=== PATIENT | female | born 1965 | race Caucasian/White ===

== ENCOUNTER 2016-09-19 08:22 | Day surgery (SDC) | payer MEDICAID ==
[~2016-09-19 08:22] MED LIST: Dexamethasone 4 MG/ML SDV ONE; Neostigmine Methylsulfate 1 MG/ML 5 ML Syringe ONE; Ondansetron 4 MG/2 ML SDV ONE; Propofol 200 MG/20 ML SDV ONE; Rocuronium 50 MG/5 ML Vial ONE; Succinylcholine/Normal Saline 200 MG/10 ML Syringe ONE; fentaNYL 250 MCG/5 ML SDV ONE
[2016-09-19] MEDS ORDERED: HYDROmorphone/Normal Saline 15 MG/30 ML PCA IV PRN (09:14)
[2016-09-19] MEDS ORDERED: Naloxone 0.4 MG/ML SDV IVPUSH PRN (09:14)
[2016-09-19] MEDS ORDERED: Dextrose 5%-Lactated Ringers 1,000 ML IV SCH ×2 (09:15→14:15)
[2016-09-19] MEDS ORDERED: Bupivacaine 0.5%/EPINEPHrine 1:200,000 50 ML MDV ONE (09:52)
[2016-09-19] MEDS ORDERED: ceFAZolin 2 GM in Premix Bag 1 BAG IV ONE (10:00)
[2016-09-19] MEDS ORDERED: Albuterol/Ipratropium 3.0-0.5 MG/3 ML Neb Soln NEB ONE (10:30)
[2016-09-19] MEDS: cefOXitin 2 GM in Sodium Chloride 0.9% 50 ML IV ONE ×2 (11:22→22:57)
[2016-09-19] MEDS ORDERED: Meropenem 500 MG in Sodium Chloride 0.9% 50 ML IV ONE (12:40)
[2016-09-19] MEDS ORDERED: Insulin Aspart 100 Units/ML 3 ML Pen SUBCUT ONE (12:45)
[2016-09-19] MEDS ORDERED: Ondansetron 4 MG/2 ML SDV IVPUSH ONE (12:59)
[2016-09-19] MEDS ORDERED: Naloxone 0.4 MG/ML SDV IV PRN (14:03)
[2016-09-19] MEDS ORDERED: Glucose Gel 15 GM in 37.5 GM Tube PO PRN (14:07)
[2016-09-19] MEDS ORDERED: 50% Dextrose in Water 50 ML Syringe IVPUSH PRN (14:07)
[2016-09-19] MEDS ORDERED: Glucagon,Human Recombinant 1 MG Vial IM PRN (14:07)
[2016-09-19] MEDS ORDERED: Insulin Aspart 100 Units/ML 3 ML Pen SUBCUT PRN (14:07)
[2016-09-19] MEDS ORDERED: Ondansetron 4 MG/2 ML SDV IVPUSH PRN (15:00)
[2016-09-19] MEDS ORDERED: Pantoprazole 40 MG Vial IVPUSH SCH (16:00)
[2016-09-19] MEDS: metFORMIN 500 MG Tab PO SCH (16:51)
[2016-09-19] MEDS: Meropenem 500 MG in Sodium Chloride 0.9% 50 ML IV SCH ×2 (18:48→23:47)
[2016-09-19] MEDS: Acetaminophen/HYDROcodone 325-5 MG Tab PO PRN (22:58)
[2016-09-20] MEDS: Acetaminophen/HYDROcodone 325-5 MG Tab PO PRN ×3 (01:57→08:34)
[2016-09-20] MEDS: Meropenem 500 MG in Sodium Chloride 0.9% 50 ML IV SCH (05:30)
[2016-09-20] MEDS ORDERED: Amoxicillin/Clavulanate K 875-125 MG Tab PO SCH (08:00)
[2016-09-20 08:05] VITALS: BP 131/65
[2016-09-20] MEDS: metFORMIN 500 MG Tab PO SCH (08:15)
[2016-09-20] MEDS ORDERED: FARXIGA 10 MG PO SCH (09:00)
[2016-09-20] MEDS ORDERED: JANUVIA 100 MG PO SCH (09:00)
--- NOTE | 2016-09-20 09:37 | DISCH ---
ADMISSION DIAGNOSES: Chronic cholecystitis, diabetes mellitus, hypertension, and hyperlipidemia. DISCHARGE DIAGNOSES: A diagnostic laparoscopy with cholecystectomy, drainage of pericholecystic abscess and repair of area of deserosalization hepatic flexure of the colon for severe sub acute/chronic cholecystitis, adhesions to hepatic flexure of the colon, and pericholecystic abscess. Date of surgery 09/19/2016. HISTORY: Joanne Guerra is a 51-year-old female with history of chronic cholecystitis. After preoperative evaluation and discussion of possible risks and possible complications, she wished to proceed with surgical procedure. HOSPITAL COURSE: Joanne had her surgery on 09/19/2016. On postop day #1, her pain was well managed. She tolerated a diet well. Her activity was good. Vital signs stable and she was able to be discharged to home. PHYSICAL EXAMINATION: GENERAL: Joanne Guerra is a 51-year-old female. VITAL SIGNS: Height is 5 feet 2 inches. Weight is 180 pounds. TPR is 98.6, 76, and 18, and blood pressure 131/65. HEENT: Negative. NECK: Supple. HEART: Regular rate and rhythm. LUNGS: Clear. ABDOMEN: Dressings dry and intact. CELE drain intact. Abdominal binder without peripheral edema. DISPOSITION: Discharged to home. CONDITION: Stable and improving. FOLLOWUP APPOINTMENT: With Naheed Schmitz PA-C, on 09/28/2016 at 11:00 a.m. HOME MEDICATION: Augmentin 875 mg one tablet oral every 12 hours #10, [place] 5/325 mg one tablet every 3 hours p.r.n. pain #50, milk of magnesia 30 mL to take 1 daily p.r.n. constipation and 2 were sent home with patient. Resume home medications vitamin C 500 mg oral daily, aspirin 81 mg oral daily, Valisone 0.1% ointment one applicator topical twice daily for vaginal rash, Symbicort 160/4.5 micro mg 2 puffs daily as needed for shortness of breath, Farxiga 10 mg oral daily, Lidex 0.05% ointment one applicator transderm twice daily p.r.n. bumps on feet, Flonase 1 spray inhalation daily, metoprolol succinate 25 mg oral daily, Singulair 10 mg oral at bedtime, multivitamin one tablet oral daily, and norethindrone ethinyl 777-28 tablet one oral daily, Januvia 100 mg oral daily, testosterone 1 injection IM every 30 days, Lipitor 20 mg oral daily, and metformin 1000 mg oral twice daily. DISCHARGE DIET: Usual diet as tolerated. Drink 8 to 10 glasses of water a day. ACTIVITY: After discharge, no lifting greater than 10 pounds for 2 weeks. Other activity, walk 8 times daily inside your home. Driving, do not drive on pain medication. Shower and bathing, may shower. Notify provider of fever, increased pain, nausea, or vomiting. Wound incision care keep site clean and dry. Change dressing daily. Wear abdominal binder for 2 weeks then as tolerated. Use incentive spirometer 10 times every hour while awake for 2 weeks.
[2016-09-20] MEDS ORDERED: Magnesium Hydroxide 400 MG/5 ML Susp 30 ML Cup PO ONE (10:58)
--- NOTE | 2016-09-21 15:41 | OR ---
DATE OF PROCEDURE: 09/19/2016 PREOPER`ATIVE DIAGNOSIS: Probable small degree of subacute and chronic cholecystitis. POSTOPERATIVE DIAGNOSES: 1. Severe subacute and chronic cholecystitis with generalized inflammatory response in the right upper quadrant. 2. Hepatic flexure serosa fused with the gallbladder. 3. Pericholecystic abscess. OPERATIVE PROCEDURE: Diagnostic laparoscopy with: 1. Cholecystectomy (15894). 2. Drainage of pericholecystic abscess (09212). 3. Repair of area of the deserosalization of hepatic flexure of colon (15492). ANESTHESIA: General. RECOVERY COLLECTOR: Naheed Schmitz PA-C. INDICATION FOR PROCEDURE: This is a 51-year-old female presenting for elective cholecystectomy. Workup included, imaging showing a thickened gallbladder wall along with some stones. By history, the patient likely had a severe ongoing to a variable extent for months or years. The plan is to proceed with a diagnostic laparoscopy, laparotomy if necessary with cholecystectomy and procedures as indicated. Potential risks including bleeding, infection, injury to the viscera in the area of possible migration of stones in the common bile duct requiring subsequent removal, subdermal possibly cardiopulmonary, septic, or hemorrhagic complications leading to were discussed, and the patient wishes to proceed. DETAILS OF THE PROCEDURE: The patient was taken to the room and placed in supine position. After general endotracheal anesthesia was induced, the abdomen was prepped and draped. A transverse epigastric incision was made and the peritoneal cavity was entered under direct vision with Optiview trocar, inflated to 15 mmHg pressure of CO2. Laparoscope was reinserted. No underlying trocar insertion site injuries were seen. Following this, a 12- mm subumbilical trocar was placed along with a 5 mm right upper quadrant trocar and general exploration was undertaken. The patient was noted to have quite striking generalized inflammatory response in the right upper quadrant. This included inflammatory changes of the duodenum, transverse colon, and the gallbladder. The gallbladder was tensely distended and both subacute and chronically inflamed. There was quite a bit in the way of omental adhesions in the area of the gallbladder as well as the lateral to that of some these adhesions that were then taken down. Eventually, this allowed the identification of the fundus of the gallbladder. As one dissected downward the omental patch was taken down with Harmonic scalpel. The hepatic flexure of the colon was noted to be essentially fused to the gallbladder over a length of around 3 cm to 4 cm. This area was dissected away sharply. This did result in that area of deserosalization of the transverse colon. This was repaired at this time with some 3-0 Vicryl seromuscular stitch at the conclusion procedure, reinforced with fibrin sealant as well. There was some inflammatory adherence of the duodenum to the gallbladder neck as well. This area was able to be dissected free without any obvious deserosalization of the duodenum. The cystic triangle dissection was somewhat difficult, but eventually cleared. Visualization of the cystic duct and cystic artery were accomplished, both structures were clipped 3 times proximally and once distally, and the gallbladder neck and cystic duct junction and cystic artery were divided. The gallbladder was then dissected off the gallbladder bed with the Harmonic scalpel and electrocautery. When I dissected the gallbladder away from the area posterior to it and underneath the liver, pericholecystic abscess was encountered and this was purulent material measuring around 10 mL to 50 mL and was evacuated. The gallbladder was eventually freed up to the entire length of the liver and was delivered through the epigastric trocar site, through the specimen bag. The incision did not need to be enlarged fairly significant in order to get the gallbladder and its contents out of the abdomen. At this point, no further problems were noted. A Yuniel-Belle drain was then placed in the right lateral trocar site and into the area of the abscess formation. Fibrin sealant was applied as noted above, and the trocars were removed. The epigastric trocar site used 5 sutures of 0 Vicryl satisfactorily closed at that level and had to be opened somewhat in order to get the gallbladder out and the subumbilical trocar site was likewise closed with 0 Vicryl stitch at the fascial level. The skin at the incision was closed with a 4-0 Vicryl skin stitch. The skin at the epigastric site was packed open with Iodoform gauze. Skin was felt to be at high risk for wound infection if closure was undertaken. The patient was taken to the recovery room in satisfactory condition. There were no complications. [employer] assistant principal Naheed Schmitz, played an essential role in assisting in this case, helping to retract structures as needed, positioning the patient, as well suturing and cutting sutures as indicated. Her presence improved the patient's safety and decreased the operative time. Tristen Washington MD /[id number]
== END 2016-09-20 11:50 | disposition home or self-care (01) ==
LOC: JP.SDS 08:22 → JP.MS 13:50 → JP.SDS 09-20 11:50
PROVIDERS: ATTEND Surgery
DX: K80.12 Calculus of gallbladder with acute and chronic cholecystitis without obstruction (principal); E11.9 Type 2 diabetes mellitus without complications; I10 Essential (primary) hypertension; E78.2 Mixed hyperlipidemia; Z88.2 Allergy status to sulfonamides; J45.909 Unspecified asthma, uncomplicated; Z87.891 Personal history of nicotine dependence
CPT/HCPCS: 36415; 44604; 47562; 49020; 82247; 82962; 84075; 85027; 88304; 94762; A9270; C9113; J0694; J1100; J1170; J2185; J2405; J2704; J3010; J7042; J7050; J7620